=== PATIENT | female | born 1980 | race Caucasian/White ===

== ENCOUNTER 2019-02-02 08:16 | Emergency (ER) | payer OTHER ==
[~2019-02-02] VITALS: Ht 177.8 cm; Wt 104.3 kg
[2019-02-02] MEDS ORDERED: NORCO 5-325 TA1 EAC1 PO (09:12)
[2019-02-02 09:16] VITALS: BP 140/93
== END 2019-02-02 09:18 | disposition home or self-care (01) ==
LOC: M.ERS 08:16
DX: S62.615A Displaced fracture of proximal phalanx of left ring finger, initial encounter for closed fracture (principal); Z88.5 Allergy status to narcotic agent; W23.0XXA Caught, crushed, jammed, or pinched between moving objects, initial encounter; Y92.89 Other specified places as the place of occurrence of the external cause; Y93.89 Activity, other specified; Y99.8 Other external cause status